=== PATIENT | female | born 2000 | race Hispanic/Latino ===

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

== ENCOUNTER 2021-08-02 14:10 | Outpatient (CLI) | payer MEDICAID ==
[2021-08-02 14:55] VITALS: BP 126/78
[2021-08-02] MEDS ORDERED: LACTATED RINGERS 500 ML IV ONE (15:10)
== END 2021-08-02 16:00 | disposition home or self-care (01) ==
LOC: TRG 14:10 → APU 14:25 → TRG 16:00
PROVIDERS: ATTEND Obstetrics & Gynecology
DX: Z34.93 Encounter for supervision of normal pregnancy, unspecified, third trimester (principal); Z3A.37 37 weeks gestation of pregnancy
CPT/HCPCS: 59025